=== PATIENT | male | born 1985 | race Caucasian/White ===

== ENCOUNTER 2019-10-25 11:17 | Emergency (ER) | payer OTHER, SELFPAY ==
[2019-10-25 11:26] VITALS: BP 147/87; PULSE 76; RESP 18; TEMP 36.4; O2SAT 99
--- NOTE | 2019-10-25 11:49 | ED.SKABFB ---
HPI - Skin/Abscess/Foreign Bdy General Chief complaint: Skin/Abscess/Foreign Body Stated complaint: rt hand middle finger pos infection Time Seen by Provider: 10/25/19 11:49 Source: patient and RN notes reviewed History of Present Illness HPI narrative: Patient is a 33-year-old male that presents the urgent care with complaints of a possible infection to the right middle finger. Patient states that the pain and redness started on Tuesday and he woke up last night with severe pain. Patient denies any known fever, nausea, vomiting. Has been using Tylenol as needed for the pain. 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 Patient aware of the plan of care. Related Data Allergies Allergy/AdvReac Type Severity Reaction Status Date / Time Penicillins Allergy Verified 10/25/19 11:25 Review of Systems Review of Systems: Narrative: CONSTITUTIONAL: Denies fever, chills, or sweats. EYES: Denies visual changes, redness, or discharge. ENT: Denies rhinorrhea, congestion, sore throat, or otalgia. CARDIOVASCULAR: Denies chest pain, palpitations, or edema. RESPIRATORY: Denies cough or dyspnea. GASTROINTESTINAL: Denies abdominal pain, nausea, vomiting, or diarrhea. GENITOURINARY: Denies dysuria or hematuria. SKIN: Reports of redness and swelling to the right middle finger MUSCULOSKELETAL: Denies back pain, joint pain, or myalgia. NEUROLOGIC: Denies headache, numbness, or weakness. All other systems reviewed are negative, except as documented in HPI. PMFSH Comments At the time of my signature, I reviewed and agree with the nursing past medical, surgical, social, and family history. There is no relevant family history pertinent to the patient complaint. Exam Narrative: Exam Narrative: GENERAL: This is a well-nourished, well-developed patient, in no apparent distress. HEAD: normocephalic, atraumatic. EYES: PERRL. Sclera clear/white. Vision is grossly intact. EARS: External ears normal NOSE: External nose normal with no obvious nasal discharge THROAT: Mucous membranes moist NECK: Neck supple CARDIOVASCULAR: Regular rate and rhythm without murmurs, gallops, or rubs. RESPIRATORY: Clear to auscultation. Breath sounds equal bilaterally. No wheezes, rales, or rhonchi. SKIN: Mild paronychia surrounding the nailbed on the ulnar aspect of the right middle finger with moderate pain; warm, intact with no suspicious lesions or rash, good texture and turgor. NEURO: awake, alert, and oriented to person, place and time. There were no obvious focal neurologic abnormalities. EXTREMITIES: No clubbing, cyanosis, or edema. Capillary refill less than 2 seconds to right upper extremity Course Vital Signs Vital signs: Vital Signs Temperature 97.6 F 10/25/19 11:26 Pulse Rate 76 10/25/19 11:26 Respiratory Rate 18 10/25/19 11:26 Blood Pressure 147/87 H 10/25/19 11:26 Pulse Oximetry 99 10/25/19 11:26 Temperature 97.6 F 10/25/19 11:26 Pulse Rate 76 10/25/19 11:26 Respiratory Rate 18 10/25/19 11:26 Blood Pressure 147/87 H 10/25/19 11:26 Pulse Oximetry 99 10/25/19 11:26 Reviewed?patient is informed that they may have pre-hypertension or hypertension based on a blood pressure reading in the department. I recommend the patient call the primary care provider listed on their discharge instructions or a physician of their choice this week to arrange follow-up for further evaluation of possible pre-hypertension or hypertension. MDM - Skin/Abscess/Foreign Bdy MDM Narrative Medical decision making narrative: Advised the patient to complete antibiotic regimen as prescribed. Do not try to pop the paronychia on the finger. May soak in plain Dial soap and warm water as needed for comfort. If the area does drain on its own make sure to keep it very clean and free of debris. Make sure to eat and drink with the medication. If you notice any increase in swelling, redness, streaking up the finger/h
== END 2019-10-25 12:10 | disposition home or self-care (01) ==
PROVIDERS: Emergency Provider Nurse Practitioner Family; PCP Physician Assistant
DX: L03.011 Cellulitis of right finger (principal)
CPT/HCPCS: 99213; G0463

== ENCOUNTER 2020-05-18 18:19 | Emergency (ER) | payer OTHER, SELFPAY ==
--- NOTE | 2020-05-18 18:24 | ED.BACK ---
HPI - Back Pain/Injury General Chief Complaint: Back Pain/Injury Stated Complaint: lower back pain Time Seen by Provider: 05/18/20 18:40 Source: patient and RN notes reviewed Mode of arrival: ambulatory Limitations: no limitations History of Present Illness HPI Narrative: 34-year-old male presents with concern for right flank pain. Reports pain was present this morning when he woke up. Reports yesterday he was chopping wood. He reports pain worsens with bending, twisting, certain movements, and is tender. He denies any hematuria, dysuria, urgency, frequency, fever, abdominal pain, vomiting. Reports an episode of nausea earlier today. MD elicited complaint: back pain Related Data Allergies Allergy/AdvReac Type Severity Reaction Status Date / Time Penicillins Allergy Verified 10/25/19 11:25 Review of Systems Review of Systems: Narrative: CONSTITUTIONAL: Denies malaise, chills, sweats, or fever. CARDIOVASCULAR: Denies chest pain, palpitations, or edema. RESPIRATORY: Denies cough or dyspnea. GASTROINTESTINAL: Denies abdominal pain, vomiting, diarrhea, bloody, or mucous stools. Reports nausea. Denies loss of bowel function, perianal anesthesia GENITOURINARY: Denies dysuria frequency, urgency, or hematuria. Denies loss of bladder function SKIN: Denies rash or itching. MUSCULOSKELETAL: Reports left flank pain. Denies myalgia. NEUROLOGIC: Denies numbness, weakness All systems reviewed & are unremarkable except as noted in HPI and below PMFSH Comments At time of signature, agree with nursing past medical, surgical, social and family history. There is no relevant family history pertinent to the presenting complaint Exam Narrative: Exam Narrative: GENERAL: Well-appearing, well-nourished, and in no acute distress. HEAD: Normocephalic, atraumatic. EYES: PERRLA and EOMI. NECK: Supple. No lymphadenopathy. CHEST: Clear to auscultation. No respiratory distress. HEART: Regular rate and rhythm. Distal pulses palpable and equal, cap refill <3 seconds ABDOMEN: Soft, nontender, nondistended, normal active bowel sounds, no palpable or pulsatile masses. No CVA tenderness MUSCULOSKELETAL: Normal range of motion and strength in all extremities; 5/5 strength with hip flexion and extension, dorsiflexion and extension, knee flexion and extension, plantar flexion and extension. Normal sensation in dermatomal distributions with sensitivity to light touch and pain. No midline back tenderness to palpation. No paraspinal tenderness. Transfers from lying to sitting to standing. SKIN: Warm, dry, no rash. No ecchymosis, erythema, open wounds to back. NEURO: No focal deficits. Alert and oriented x3. Reflexes intact. Normal gait. PSYCH: Normal mood and affect Course Course Emergency Course: Patient is aware of diagnosis, understands and agrees to treatment plan. Anticipatory guidance given. Patient agrees to follow-up as directed and is aware of reasons to seek care at the emergency department. Portions of this record may have been created with voice recognition software Vital Signs Vital signs: Vital Signs Temperature 99.2 F 05/18/20 18:32 Pulse Rate 102 H 05/18/20 18:32 Respiratory Rate 16 05/18/20 18:32 Blood Pressure 144/83 H 05/18/20 18:32 Pulse Oximetry 100 05/18/20 18:32 Temperature 99.2 F 05/18/20 18:32 Pulse Rate 102 H 05/18/20 18:32 Respiratory Rate 16 05/18/20 18:32 Blood Pressure 144/83 H 05/18/20 18:32 Pulse Oximetry 100 05/18/20 18:32 Reviewed. MDM - Back Pain/Injury MDM Narrative Medical decision making narrative: No risk factors or findings concerning for epidural abscess, diskitis, vertebral osteomyelitis, cord compression, cauda equina, vertebral fracture or bone malignancy, AAA, or pyelonephritis. Patient instructed to consider further imaging and workup through their primary care physician as an outpatient if symptoms persist. Differential Diagnosis Differential diagnosis: Likely lumbar radiculopa
[2020-05-18 18:32] VITALS: BP 144/83; PULSE 102; RESP 16; TEMP 37.3; O2SAT 100
== END 2020-05-18 18:58 | disposition home or self-care (01) ==
PROVIDERS: Emergency Provider Nurse Practitioner; PCP Physician Assistant
DX: M54.9 Dorsalgia, unspecified (principal)
CPT/HCPCS: 81003; 99213; G0463

== ENCOUNTER 2020-06-20 13:32 | Emergency (ER) | payer OTHER, SELFPAY ==
--- NOTE | ~2020-06-20 | XR_ITS ---
EXAMINATION: XR knee RT min 4V DATE: 06/20/2020 13:56 INDICATION: Right knee pain post running injury with audible pop. TECHNIQUE: Anteroposterior, 2 oblique and crosstable lateral views of the right knee were obtained COMPARISON: None. FINDINGS: Alignment is normal. No fracture. Joint spaces appear normal although narrowing can be underestimate d on nonweightbearing imaging. No joint effusion/layering lipohemarthrosis. Prominent subcutaneous va ricosities along the posterior medial aspect of the distal thigh and proximal calf. Soft tissues are otherwise unremarkable. IMPRESSION: 1. No right knee joint effusion or osseous abnormality. Reviewed, dictated and finalized at location A.
[2020-06-20 13:41] VITALS: BP 148/84; PULSE 76; RESP 16; TEMP 37.1; O2SAT 98
--- NOTE | 2020-06-20 13:52 | ED.GENADULT ---
HPI - General Adult General Chief complaint: Extremity Injury, Lower Stated complaint: Right Knee Pain Time Seen by Provider: 06/20/20 13:53 Source: patient and RN notes reviewed Mode of arrival: ambulatory Limitations: no limitations History of Present Illness HPI narrative: 34-year-old male presents with complaints of right anterior knee pain for the past 6 days. Jacob says he was out running around and playing with kids when he heard a popping sound from RT knee, with swelling and pain later. Ice, elevation, Ibuprofen (last on Tuesday06/15/20). No radiation of pain. No numbness or tingling, or bleeding. No loss of mobility. Exacerbating factor consist of bearing weight. No fever or chills. Remains active. The patient reports he have not been diagnosed with COVID-19. The patient reports he is not waiting for the results of a COVID-19 lab test. The patient reports he do not have fever, chills, weakness, or fatigue. The patient reports he do not have a new or worsening cough or shortness of breath. Denies chest pain. The patient reports he do not have any rhinorrhea, congestion, loss of taste, sore throat, nausea, vomiting, abdominal pain, and diarrhea. Tolerating po intake well. Denies recent traveling. Denies concerns for COVID-19 or exposures been home with limited outdoor exposure except for essential household needs, work, and return home. At this time, patient is not suspected of having COVID-19. Some parts of this dictation were generated by voice recognition software and may contain typographical and/or grammatical inaccuracies. Related Data Allergies Allergy/AdvReac Type Severity Reaction Status Date / Time Penicillins Allergy Verified 10/25/19 11:25 Review of Systems Review of Systems: Narrative: CONSTITUTIONAL: Denies fever, chills, sweats. EYES: Denies visual changes, redness, discharge. ENT: Denies rhinorrhea, congestion, sore throat, otalgia. CARDIOVASCULAR: Denies chest pain, palpitations, edema. RESPIRATORY: Denies dyspnea, wheezing, cough. GASTROINTESTINAL: Denies abdominal pain, nausea, vomiting, diarrhea. SKIN: Denies rash or itching. MUSCULOSKELETAL: Denies acute back pain or myalgia. Complains of Right anterior knee pain. NEUROLOGIC: Denies numbness, or focal weakness. PSYCHIATRIC: Denies anxiety or depression. All other systems reviewed & are unremarkable except as noted in HPI and below. [facility] Past Medical History Medical History (Updated 06/20/20 @ 14:26 by CURTIS Haddad) Smoker Tear meniscus knee Surgical History Surgical History (Updated 06/20/20 @ 14:26 by CURTIS Haddad) History of carpal tunnel surgery Bilateral wrist and elbow History of knee surgery Right knee Family History Family History (Updated 06/20/20 @ 14:26 by CURTIS Haddad) Father Alive and well Mother Alive and well Social History Social History (Updated 06/20/20 @ 14:27 by CURTIS Haddad) Smoking status: Light tobacco smoker Tobacco type: cigarettes Second hand tobacco smoke exposure: Yes Alcohol intake: current Substance use: never Living arrangements: with family Occupation/Education: occupation Gender identity (if verbalized by the patient): Male Sexual Orientation (if Verbalized by the Patient): Straight or Heterosexual Comments At time of signature, agree with nurse past medical, surgical, social, and family history. There is no relevant family history pertinent to the presenting complaint. Exam Narrative: Exam Narrative: GENERAL: This is a well-nourished, well-developed patient, in no apparent distress. Talks in full sentences and ambulates with steady gait without dyspnea. HEAD: normocephalic, atraumatic. EYES: PERRL. Sclera clear/white. Vision is grossly intact. CARDIOVASCULAR: Regular rate and rhythm without murmurs, gallops, or rubs. RESPIRATORY: Clear to auscultation. Breath sounds equal bilaterally. No wheezes, rales, o
== END 2020-06-20 14:14 | disposition home or self-care (01) ==
PROVIDERS: Emergency Provider Nurse Practitioner Family; PCP Physician Assistant
DX: S83.91XA Sprain of unspecified site of right knee, initial encounter (principal); X58.XXXA Exposure to other specified factors, initial encounter; Y93.02 Activity, running; F17.210 Nicotine dependence, cigarettes, uncomplicated
CPT/HCPCS: 73564; 99213; G0463

== ENCOUNTER 2023-04-05 02:48 | Emergency (ER) | payer OTHER, SELFPAY ==
[2023-04-05] VITALS (23 sets, daily range): BP systolic 100–120; BP diastolic 55–78; PULSE 73–99; RESP 15–26; TEMP 36.7; O2SAT 92–98
--- NOTE | ~2023-04-05 | XR_ITS ---
Portable chest x-ray Comparison: 04/13/2018 Clinical History: Syncope Findings: Lungs are clear, without focal consolidation or pleural effusion. Cardiomediastinal silho uette is stable. Bones and soft tissues are unremarkable. Impression: Clear lungs. Reviewed, dictated and finalized at location . Impression: Clear lungs.
--- NOTE | ~2023-04-05 | CT_ITS ---
Non-contrast Head CT History: Syncope Technique: Axial non-contrast imaging of the brain was performed. Dose reduction technique was used on this scan by utilizing automated exposure control and iterative reconstruction technique. The dose -length product (DLP) was 681.00 mGy-cm. Findings: There is no evidence of intracranial hemorrhage, mass lesion, or acute infarct. Brain par enchyma appears normal. The ventricles and subarachnoid spaces are normal in size. The calvarium ap pears normal. The visualized paranasal sinuses and mastoid air cells are clear. Impression: No significant abnormality seen. Reviewed, dictated and finalized at location . Impression: No significant abnormality seen.
--- NOTE | 2023-04-05 03:16 | ECG_ITS ---
Measurements Intervals [place] Rate: 94 P: 14 RI: 148 QRS: -40 QRSD: 101 T: 49 QT: 365 QTc: 458 Interpretive Statements SINUS RHYTHM MARKED LEFT AXIS DEVIATION [QRS AXIS < -30] ABNORMAL ECG NO PREVIOUS ECG AVAILABLE FOR COMPARISON Electronically Signed On 04-05-2023 13:20:32 CDT by Varun Magdaleno M.D.
--- NOTE | 2023-04-05 03:16 | ED.SYNCOPE ---
HPI - Syncope General Chief Complaint: Syncope Stated Complaint: SYNCOPAL EPISODE, ETOH+ Time Seen by Provider: 04/05/23 03:04 Source: patient, family (), RN notes reviewed and old records reviewed Mode of arrival: EMS Limitations: no limitations History of Present Illness HPI narrative: This is a 37 year old male who presents for evaluation of syncopal episodes . Patient and his are providing history. Patient today has been outside all day playing in his pool. He has drank 12-15 beers over the past several hours. Patient had just gone into his garage to dry off his clothes and he was sitting down. While he was sitting down , he started to feel dizziness and nauseated. Patient was seen by his to pass out onto the floor out of the chair. He had loss conscious for 30 seconds. She reports he had snoring respirations. Patient was able to come to and go into his house. His states patient had another syncopal episode inside his house. Patient denies having associated chest pain, abdominal pain, heart racing or palpitations. He still has some dizziness currently. He denies any heart disease. Related Data Allergies Allergy/AdvReac Type Severity Reaction Status Date / Time Penicillins Allergy Unknown Verified 04/05/23 03:10 Review of Systems Constitutional: Constitutional: Denies weakness Cardiovascular: Cardiovascular: Reports syncope, Denies rapid heart rate, Denies irregular heart rhythm, Denies leg edema and Denies dyspnea Respiratory: Respiratory: Denies chest congestion, Denies hemoptysis, Denies excessive phlegm production and Denies dyspnea Gastrointestinal: Gastrointestinal: Denies abdominal pain, Denies hematochezia, Denies diarrhea, Reports nausea and Denies vomiting Genitourinary: Genitourinary: Denies hematuria, Denies dysuria, Denies penile discharge and Denies testicular pain Musculoskeletal: Musculoskeletal: Denies joint swelling, Denies loss of height and Denies muscle weakness Neurologic: Denies syncope, Denies focal weakness and Denies weakness PMFSH Past Medical History Medical History Smoker Tear meniscus knee Surgical History Surgical History (Updated 06/20/20 @ 14:26 by CURTIS Haddad) History of carpal tunnel surgery Bilateral wrist and elbow History of knee surgery Right knee Family History Family History (Updated 06/20/20 @ 14:26 by CURTIS Haddad) Father Alive and well Mother Alive and well Social History Social History (Updated 06/20/20 @ 14:27 by CURTIS Haddad) Smoking status: Light tobacco smoker Tobacco type: cigarettes Second hand tobacco smoke exposure: Yes Alcohol intake: current Substance use: never Living arrangements: with family Occupation/Education: occupation Gender identity (if verbalized by the patient): Male Sexual Orientation (if Verbalized by the Patient): Straight or Heterosexual Exam Const: General: ill appearing Nutritional Appearance: obese Orientation/consciousness: patient oriented x3 HENMT: Head: normal to inspection Throat: posterior oropharynx normal and uvula midline Eyes: EOM: EOMs intact bilaterally Neck: Neck: normal visual inspection Chest: Chest palpation & inspection: normal inspection of the chest Resp: Effort & Inspection: normal respiratory effort Auscultation: clear to auscultation bilaterally Cardio: Rate: regular rate Rhythm: regular rhythm Heart sounds: no murmurs GI: GI Palp: Yes Soft to palpation, No Tenderness to palpation present (GI), No Guarding due to palpation present (GI) and No Rigid due to palpation Auscultation: normal bowel sounds Skin: General skin exam: normal color Rashes: no rashes Neuro: General: patient oriented x3, moves all extremities and CN's II-XI intact bilaterally Extrem: General: normal to inspection Psych: Mental Status: mental status grossly normal Affect: sumi
[2023-04-05] MEDS: SODIUM CHLORIDE 0.9% IV 1,000 ML 999 ML IV CONT ×2 (03:19→04:35)
[2023-04-05 03:27] LABS: Basophils Absolute Auto 0.1 K/mm3 (0.0-0.1); Basophils Percent Auto 0.6 % (0.2-1.2); Eosinophils Absolute Auto 0.2 K/mm3 (0-0.3); Eosinophils Percent Auto 1.6 % (0-4.4); Hematocrit 48.1 % (42.0-52.0); Hemoglobin 15.8 g/dL (14.0-18.0); Immature Granulocyte Absolute 0.08 K/mm3 (0.00-0.031); Immature Granulocyte Percent A 0.8 % (0-0.5); Lymphocytes Absolute Auto 2.08 K/mm3 (0.9-3.2); Lymphocytes Percent Auto 20.5 % (18.3-44.2); Mean Corpuscular HGB Conc 32.8 g/dl (32-36); Mean Corpuscular Volume 94.5 fl (80-100); Mean Platelet Volume 11.8 fl (7.4-10.4); Monocytes Absolute Auto 0.8 K/mm3 (0.1-0.6); Monocytes Percent Auto 8.1 % (2.6-8.5); Neutrophils Percent Auto 68.4 % (45.5-73.1); Platelet Count Result 210 k/mm3 (150-375); Red Blood Count 5.09 M/mm3 (4.6-6.20); Red Cell Distribution Width 12.8 % (11.5-14.5); White Blood Count 10.2 K/mm3 (4.5-10.0)
[2023-04-05 03:48] LABS: Alanine Aminotransferase 86 U/L (6-50); Alkaline Phosphatase 89 U/L (38-126); Anion Gap 16 mmol/L (8-16); Aspartate Amino Transferase 48 U/L (17-59); Bilirubin,Total 0.5 mg/dL (0.2-1.3); Blood Urea Nitrogen 13 mg/dL (9-20); Calcium 9.1 mg/dL (8.4-10.2); Carbon Dioxide 22 mmol/L (22-30); Chloride 102 mmol/L (98-107); Estimated Glomerular Filt Rate > 60; Glucose 113 mg/dL (65-110); Magnesium 2.3 mg/dL (1.6-2.3); Potassium 3.7 mmol/L (3.4-5.0); Sodium 140 mmol/L (137-145)
[2023-04-05 03:49] LABS: Lactic Acid Reflex 2.4 mmol/L (0.7-2.0)
[2023-04-05 03:53] LABS: Ethanol 109 mg/dL (<10); Prothrombin Time 13.2 Seconds (11.1-14.7)
[2023-04-05 03:54] LABS: Partial Thromboplastin Time 25.4 SECONDS (22.3-36.8)
[2023-04-05 03:59] LABS: NT Pro B Type Natriuretic Pept 59 pg/mL (19.9-100); Troponin I < 0.012 ng/mL (0.000-0.034)
[2023-04-05 04:23] LABS: Appearance Urine Clear (Clear); Bacteria Urine None Seen /hpf; Bilirubin Urine Negative (Negative); Blood Urine Negative (Negative); Color Urine Yellow (Yellow); Glucose Urine UA Negative (Negative); Hyaline Casts Urine Present /lpf; Ketones Urine Negative (Negative); Leukocyte Esterase Ur Negative LEU/UL (Negative); Need Manual Microscopic Reviewed; Nitrate Urine Negative (Negative); Protein Urine Trace mg/dL (Negative); RBC Urine 0-2 /hpf (0-2); Specific Grav Ur 1.009 (1.001-1.035); Squamous Epithelial Cell Urine None seen /hpf (Few); Urobilinogen Urine 0.2 mg/dL (<2.0); WBC Urine 0-5 /hpf
[2023-04-05 04:24] LABS: Add Urine Microscopic? YES
[2023-04-05 04:27] LABS: Amphetamine Screen Urine Negative (Negative); Barbiturate Screen Urine Negative (Negative); Benzodiazepines Screen Urine Negative (Negative); Cannabinoid Screen Urine Negative (Negative); Cocaine Screen Urine Negative (Negative); Methadone Screen Urine Negative (Negative); Opiate Screen Urine Negative (Negative); Phencyclidine Screen Urine Negative (Negative)
[2023-04-05 06:25] LABS: Reflex Lactic Acid Yes or No Add Lactic
== END 2023-04-05 06:45 | disposition left against medical advice (07) ==
LOC: ANHED 03:21 → ANH3MEDSUR 06:31
PROVIDERS: Emergency Provider General Practice; PCP Physician Assistant
DX: R55 Syncope and collapse (principal); E87.20 Acidosis, unspecified; F17.210 Nicotine dependence, cigarettes, uncomplicated; R94.31 Abnormal electrocardiogram [ECG] [EKG]
CPT/HCPCS: 36415; 70450; 71045; 80053; 80307; 81001; 83605; 83735; 83880; 84484; 85025; 85610; 85730; 93005; 96360; 96361; 99284; J7030